=== PATIENT | male | born 1950 | race African-American/Black ===

== ENCOUNTER 2025-03-08 02:23 | Emergency (ER) | payer MEDICARE, OTHER ==
[~2025-03-08] VITALS: Ht 185.4 cm; Wt 98.0 kg
[~2025-03-08 02:23] MED LIST: CYCL10TA21 PO; GUAI600T26 PO; HYDR-3927 PO; IBUP-2030 PO; LISI10TA26 PO; OMEP20CA4 PO; RANI150C12 PO; SIMV-43 PO
[2025-03-08 02:48] VITALS: O2SAT 98
[2025-03-08] MEDS ORDERED: IBUP-2029 MT (09:06)
[2025-03-08] MEDS: IBUPROFEN 600MG TABLET PO ONE (09:39)
[2025-03-08 09:40] VITALS: BP 143/78; PULSE 99; RESP 18; TEMP 36.8; O2SAT 98
== END 2025-03-08 10:01 | disposition home or self-care (01) ==
LOC: ER 02:23
DX: M25.561 Pain in right knee (principal); E78.00 Pure hypercholesterolemia, unspecified; I10 Essential (primary) hypertension; M17.11 Unilateral primary osteoarthritis, right knee; Z79.899 Other long term (current) drug therapy; W22.09XA Striking against other stationary object, initial encounter; Y93.89 Activity, other specified; Y92.89 Other specified places as the place of occurrence of the external cause; Y99.8 Other external cause status
CPT/HCPCS: 29505; 73562; 99283